=== PATIENT | male | born 1985 | race Caucasian/White ===

== ENCOUNTER 2018-03-01 13:42 | Emergency (ER) | payer SELFPAY ==
[~2018-03-01] VITALS: Ht 175.3 cm; Wt 79.4 kg
[~2018-03-01 13:42] MED LIST: LORTA5 PO; POLY10O RIGHT EYE
[2018-03-01 13:51] VITALS: BP 122/58; PULSE 95; RESP 16; TEMP 97.8; O2SAT 96
[2018-03-01] MEDS ORDERED: SODIUM CHLOR 0.9% 1000 ML INJ 1,000 ML IV ONE (14:45)
--- NOTE | 2018-03-01 14:46 | PD ---
HPI Chief Complaint: GI Complaint Time Seen by Provider: 14:43 Travel History International Travel<30 days: No Contact w/Intl Traveler<30days: No Traveled to known affect area: No History of Present Illness HPI 32-year-old male says he been sick since Wednesday. He has been having 15-20 bowel movements per day. He has had poor appetite. He is able to drink. He is having crampy abdominal pain. He has taken Pepto-Bismol and [place] without any relief. He has not taken Imodium. He is not aware of fever. He has not noted any blood or mucus in the stool. There has not been any travel PFSH Past Medical History Medical History: Denies Significant Hx Tetanus Vaccination: < 5 Years Influenza Vaccination: No Past Surgical History Surgical History: No Previous Surgery Social History Alcohol Use: Yes (RARE) Tobacco Use: Yes (1/2PPD) Substance Use: No Allergies-Medications (Allergen,Severity, Reaction): Coded Allergies: No Known Allergies (Unverified Adverse Reaction, Unknown, 03/01/18) Reported Meds & Prescriptions Reported Meds & Active Scripts Active No Active Prescriptions or Reported Medications Review of Systems General / Constitutional: No: Fever, Chills Eyes: No: Diploplia, Blurred Vision HENT: No: Headaches, Vertigo Cardiovascular: No: Chest Pain or Discomfort Respiratory: No: Cough, Shortness of Breath Gastrointestinal: Positive: Nausea, Diarrhea, Abdominal Pain Genitourinary: Positive: Decreased Urinary Output, No: Frequency Musculoskeletal: No: Myalgias Physical Exam Narrative GENERAL: Well-developed male SKIN: Focused skin assessment warm/dry. HEAD: Atraumatic. Normocephalic. EYES: Pupils equal and round. No scleral icterus. No injection or drainage. ENT: No nasal bleeding or discharge. Mucous membranes pink and moist. NECK: Trachea midline. No JVD. CARDIOVASCULAR: Regular rate and rhythm. No murmur appreciated. RESPIRATORY: No accessory muscle use. Clear to auscultation. Breath sounds equal bilaterally. GASTROINTESTINAL: Abdomen soft, there is diffuse tenderness without guarding , nondistended. Hepatic and splenic margins not palpable. MUSCULOSKELETAL: No obvious deformities. No clubbing. No cyanosis. No edema. NEUROLOGICAL: Awake and alert. No obvious cranial nerve deficits. Motor grossly within normal limits. Normal speech. PSYCHIATRIC: Appropriate mood and affect; insight and judgment normal. Data Data Last Documented VS Vital Signs Date Time Temp Pulse Resp B/P (MAP) Pulse Ox O2 Delivery O2 Flow Rate FiO2 03/01/18 13:51 97.8 95 16 122/58 (79) 96 Orders Orders Complete Blood Count With Diff (03/01/18 14:43) Comprehensive Metabolic Panel (03/01/18 14:43) Rotavirus Ag Detection (Stool) (03/01/18 14:43) Enteric Path (Stool) (03/01/18 14:43) Ns (Bolus) Inj (03/01/18 14:45) MDM Medical Decision Making Medical Screen Exam Complete: Yes Emergency Medical Condition: Yes Medical Record Reviewed: Yes Differential Diagnosis Differential includes enteritis, viral enteritis bacterial enteritis Narrative Course Lab work and IV fluids have been ordered. Stool samples have been ordered Scripts No Active Prescriptions or Reported Meds Robinson Lucas MD Mar 01, 2018 14:46
[2018-03-01 14:59] LABS: AUTOMATED NEUTROPHIL # 14.7 TH/MM3 (1.8-7.7); BASOPHIL # 0.1 TH/MM3 (0-0.2); BASOPHIL % 0.7 % (0.0-2.0); EOSINOPHIL # 0.3 TH/MM3 (0-0.4); EOSINOPHIL % 1.9 % (0.0-4.0); HEMATOCRIT 44.4 % (39.0-51.0); HEMOGLOBIN 14.9 GM/DL (13.0-17.0); LYMPH % 5.6 % (9.0-44.0); LYMPHOCYTE # 0.9 TH/MM3 (1.0-4.8); MEAN CELL VOLUME 90.1 FL (80.0-100.0); MEAN CORPUSCULAR HEMOGLOBIN 30.1 PG (27.0-34.0); MEAN CORPUSCULAR HGB CONC 33.4 % (32.0-36.0); MEAN PLATELET VOLUME 9.2 FL (7.0-11.0); MONO % 4.1 % (0.0-8.0); MONOCYTE # 0.7 TH/MM3 (0-0.9); NEUT % 87.7 % (16.0-70.0); PLATELET COUNT 215 TH/MM3 (150-450); RED BLOOD COUNT 4.93 MIL/MM3 (4.50-5.90); RED CELL DISTRIBUTION WIDTH 12.9 % (11.6-17.2); WHITE BLOOD COUNT 16.7 TH/MM3 (4.0-11.0)
[2018-03-01 15:11] LABS: CHLORIDE 109 MEQ/L (98-107); SODIUM (NA) 140 MEQ/L (136-145)
[2018-03-01 15:15] LABS: ALBUMIN 4.1 GM/DL (3.4-5.0); BICARBONATE 25.5 MEQ/L (21.0-32.0); BLOOD UREA NITROGEN 9 MG/DL (7-18); CALCIUM 8.6 MG/DL (8.5-10.1); GLUCOSE,RANDOM 92 MG/DL (74-106)
[2018-03-01 15:18] LABS: ALT (GPT) 35 U/L (12-78); AST (GOT) 30 U/L (15-37); CREATININE 0.99 MG/DL (0.60-1.30); GLOMERULAR FILTRATION RATE 87 ML/MIN (>89)
[2018-03-01 15:20] LABS: TOTAL BILIRUBIN ADULT 0.5 MG/DL (0.2-1.0); TOTAL PROTEIN 7.5 GM/DL (6.4-8.2)
[2018-03-01 15:21] LABS: ALKALINE PHOSPHATASE 78 U/L (45-117)
--- NOTE | 2018-03-01 16:41 | PD ---
Data Data Last Documented VS Vital Signs Date Time Temp Pulse Resp B/P (MAP) Pulse Ox O2 Delivery O2 Flow Rate FiO2 03/01/18 13:51 97.8 95 16 122/58 (79) 96 Orders Orders Complete Blood Count With Diff (03/01/18 14:43) Comprehensive Metabolic Panel (03/01/18 14:43) Rotavirus Ag Detection (Stool) (03/01/18 14:43) Enteric Path (Stool) (03/01/18 14:43) Sodium Chlor 0.9% 1000 Ml Inj (Ns 1000 M (03/01/18 14:45) Labs Laboratory Tests Test 03/01/18 14:45 White Blood Count 16.7 TH/MM3 Red Blood Count 4.93 MIL/MM3 Hemoglobin 14.9 GM/DL Hematocrit 44.4 % Mean Corpuscular Volume 90.1 FL Mean Corpuscular Hemoglobin 30.1 PG Mean Corpuscular Hemoglobin Concent 33.4 % Red Cell Distribution Width 12.9 % Platelet Count 215 TH/MM3 Mean Platelet Volume 9.2 FL Neutrophils (%) (Auto) 87.7 % Lymphocytes (%) (Auto) 5.6 % Monocytes (%) (Auto) 4.1 % Eosinophils (%) (Auto) 1.9 % Basophils (%) (Auto) 0.7 % Neutrophils # (Auto) 14.7 TH/MM3 Lymphocytes # (Auto) 0.9 TH/MM3 Monocytes # (Auto) 0.7 TH/MM3 Eosinophils # (Auto) 0.3 TH/MM3 Basophils # (Auto) 0.1 TH/MM3 CBC Comment DIFF FINAL Differential Comment Blood Urea Nitrogen 9 MG/DL Creatinine 0.99 MG/DL Random Glucose 92 MG/DL Total Protein 7.5 GM/DL Albumin 4.1 GM/DL Calcium Level 8.6 MG/DL Alkaline Phosphatase 78 U/L Aspartate Amino Transf (AST/SGOT) 30 U/L Alanine Aminotransferase (ALT/SGPT) 35 U/L Total Bilirubin 0.5 MG/DL Sodium Level 140 MEQ/L Potassium Level 3.9 MEQ/L Chloride Level 109 MEQ/L Carbon Dioxide Level 25.5 MEQ/L Anion Gap 6 MEQ/L Estimat Glomerular Filtration Rate 87 ML/MIN MDM Supervised Visit with GABRIEL: No Narrative Course This case is checked out to me by Dr. Zheng at 4 PM. I have reevaluated the patient and reviewed his workup with him. CBC shows some nonspecific leukocytosis and metabolic studies are normal Stool studies have been sent and are pending Patient does not have any red flag signs to suggest he needs antibiotic therapy. No bloody diarrhea, no fever, not having abdominal pain He is not having any vomiting or ill contacts or recent travel No risk factors for C. difficile colitis, no recent antibiotics Recommend primary care or GI follow-up. He is hydrated well Diagnosis Primary Impression: Diarrhea Qualified Codes: R19.7 - Diarrhea, unspecified Additional Instruction: Follow-up with primary care or GI physician Med/Other Pt SpecificInfo: Other Scripts No Active Prescriptions or Reported Meds Disposition: DISCHARGE HOME Condition: Stable Shahid Torrez MD Mar 01, 2018 16:41
[2018-03-01 16:48] VITALS: BP 116/66; PULSE 81; RESP 16; O2SAT 97
== END 2018-03-01 17:06 | disposition home or self-care (01) ==
LOC: PHED 13:42
DX: R19.7 Diarrhea, unspecified (principal); R11.0 Nausea; F17.210 Nicotine dependence, cigarettes, uncomplicated
CPT/HCPCS: 80053; 85025; 87425; 87506; 96360; 99283; J7030